=== PATIENT | female | born 1975 | race Asian ===

== ENCOUNTER 2020-05-19 10:10 | Emergency (ER) | payer BC, SELFPAY ==
--- NOTE | 2020-05-19 10:24 | ED.URI ---
HPI - URI/Sore Throat General Chief Complaint: Upper Respiratory Infection Stated Complaint: sore throat Time Seen by Provider: 05/19/20 10:24 Source: patient and RN notes reviewed History of Present Illness HPI Narrative: Patient is a 45-year-old female who presents the urgent care with complaints of a sore throat. Patient states that she has had a sore throat for 1 week and a slight dry cough without any fever, nausea, vomiting. Patient states that she had Keflex leftover from a previous prescription and has been taking it for the last 2 days. No other acute complaints. Denies any other use of [id number] medication. Patient states that her symptoms exacerbate when wearing the mask for too long. No acute distress noted. Patient read the plan of care. Related Data Home Medications Medication Instructions Recorded Confirmed cephalexin [Keflex] 500 mg PO Q12H 05/19/20 05/19/20 Allergies Allergy/AdvReac Type Severity Reaction Status Date / Time No Known Allergies Allergy Mild Verified 05/19/20 10:15 Review of Systems Review of Systems: Narrative: CONSTITUTIONAL: Denies fever, chills, or sweats. EYES: Denies visual changes, redness, or discharge. ENT: Reports of mild sore throat CARDIOVASCULAR: Denies chest pain, palpitations, or edema. RESPIRATORY: Reports a mild nonproductive cough without dyspnea GASTROINTESTINAL: Denies abdominal pain, nausea, vomiting, or diarrhea. GENITOURINARY: Denies dysuria or hematuria. SKIN: Denies rash or itching. MUSCULOSKELETAL: Denies back pain, joint pain, or myalgia. NEUROLOGIC: Denies headache, numbness, or weakness. All other systems reviewed are negative, except as documented in HPI. [facility] Social History Social History Gender identity (if verbalized by the patient): Female Comments At the time of my signature, I reviewed and agree with the nursing past medical, surgical, social, and family history. There is no relevant family history pertinent to the patient complaint. Exam Narrative: Exam Narrative: GENERAL: This is a well-nourished, well-developed patient, in no apparent distress. HEAD: normocephalic, atraumatic. EYES: PERRL. Sclera clear/white. Vision is grossly intact. EARS: External ears normal, auditory canals clear and without drainage, TMs normal without perforation. Hearing grossly intact. NOSE: External nose normal with no obvious nasal discharge, nares without redness, no rhinorrhea. THROAT: Mucous membranes moist, mild erythema noted to posterior oropharynx with moderate postnasal drainage without exudate or ulceration NECK: Neck supple CARDIOVASCULAR: Regular rate and rhythm without murmurs, gallops, or rubs. RESPIRATORY: Clear to auscultation. Breath sounds equal bilaterally. No wheezes, rales, or rhonchi. SKIN: warm, intact with no suspicious lesions or rash, good texture and turgor. NEURO: awake, alert, and oriented to person, place and time. There were no obvious focal neurologic abnormalities. EXTREMITIES: No clubbing, cyanosis, or edema. Course Vital Signs Vital signs: Vital Signs Temperature 98 F 05/19/20 10:27 Pulse Rate 62 05/19/20 10:27 Respiratory Rate 05/19/20 10:27 Blood Pressure 115/61 05/19/20 10:27 Pulse Oximetry 100 05/19/20 10:27 Temperature 98 F 05/19/20 10:27 Pulse Rate 62 05/19/20 10:27 Respiratory Rate 05/19/20 10:27 Blood Pressure 115/61 05/19/20 10:27 Pulse Oximetry 100 05/19/20 10:27 Reviewed MDM - URI/Sore Throat MDM Narrative Medical decision making narrative: Reviewed lab results with the patient. She is aware that strep swab was negative. Educated the patient on culture and we will call within 72 hours if culture is positive and antibiotics are necessary. Advised the patient to stop taking her leftover Keflex. Use [id number] allergy medication such as Claritin in conjunction with Flonase nasal spray for symptom relief. If you develop any increase in symptoms associate
[2020-05-19 10:27] VITALS: BP 115/61; PULSE 62; RESP 20; TEMP 36.6; O2SAT 100
== END 2020-05-19 10:36 | disposition home or self-care (01) ==
PROVIDERS: Emergency Provider Nurse Practitioner Family
DX: J02.9 Acute pharyngitis, unspecified (principal)
CPT/HCPCS: 87081; 87880; 99203; G0463

== ENCOUNTER 2023-05-22 06:11 | Day surgery (SDC) | payer OTHER, SELFPAY ==
[2023-05-10 10:49] VITALS: BMI 22.3
[2023-05-12 10:07] VITALS: BMI 19.6
--- NOTE | 2023-05-19 16:38 | PM.HPGS ---
History of Present Illness History of Present Illness Consent: Risks, benefits, and alternatives have been discussed and questions answered. Patient agrees to proceed with procedure. Chief complaint: Constipation Narrative: Pramod Galindo is a 48 year old female Referred for colonoscopy due to change in bowel habits. Review of Systems Review of Systems: All systems reviewed & are unremarkable except as noted in HPI and below PMFSH Social History Social History Smoking status: Never smoker Alcohol intake: never Substance use type: does not use Living arrangements: with family Gender identity (if verbalized by the patient): Female Spiritual care concerns: No Meds Home Medications and Allergies Home Medications Medication Instructions Recorded Confirmed Type ergocalciferol (vitamin D2) 1,250 1,250 mcg PO WEEKLY 05/12/23 05/22/23 History mcg (50,000 unit) capsule oxybutynin chloride 5 mg 5 mg PO DAILY 05/12/23 05/12/23 History tablet,extended release 24 hr Allergies Allergy/AdvReac Type Severity Reaction Status Date / Time No Known Allergies Allergy Mild Verified 05/22/23 06:30 Exam Const: General: alert Orientation/consciousness: patient oriented x3 Resp: Auscultation: clear to auscultation bilaterally Cardio: Rhythm: regular rhythm GI: GI Palp: Yes Soft to palpation and No Tenderness to palpation present (GI) Neuro: General: patient oriented x3 Assessment and Plan Assessment and plan (1) Change in bowel habits: Code(s): R19.4 - Change in bowel habit Status: Acute Assessment and Plan: Colonoscopy with possible biopsy or polypectomy or cautery or injection of substances.
[2023-05-22] VITALS (8 sets, daily range): BP systolic 80–122; BP diastolic 53–77; PULSE 53–71; RESP 14–18; TEMP 36.2; O2SAT 98–100; BMI 19.2
--- NOTE | 2023-05-22 06:45 | P.PNAN_ITS ---
Anes - Initial Pre Proc Eval Procedure: Operation Date: 05/22/23 07:30 Proposed Procedures p Diagnostic Colonoscopy - Berto Jones MD Date/Time: 05/22/23 06:45 Surgeon: Berto Jones MD Pre Op Diagnosis: Constipation Patient Data Age: 48 Gender: F Height: 1.63 m Weight: 50.9 kg Last Vital Signs Temp 36.2 C L 05/22/23 06:32 Pulse 56 L 05/22/23 06:32 Resp 16 05/22/23 06:32 BP 122/74 05/22/23 06:32 Pulse Ox 100 05/22/23 06:32 O2 Del Method Room Air 05/22/23 06:32 Allergies Allergy/AdvReac Type Severity Reaction Status Date / Time No Known Allergies Allergy Mild Verified 05/22/23 06:30 Home Medications Medication Instructions Recorded Confirmed Type ergocalciferol (vitamin D2) 1,250 1,250 mcg PO WEEKLY 05/12/23 05/22/23 History mcg (50,000 unit) capsule oxybutynin chloride 5 mg 5 mg PO DAILY 05/12/23 05/12/23 History tablet,extended release 24 hr Patient hx anesthesia problems: none Family hx anesthesia problems: none Results Review: All pre-operative results and documents have been reviewed as part of the pre- operative evaluation. [facility] Social History Social History Smoking status: Never smoker Alcohol intake: never Substance use type: does not use Living arrangements: with family Gender identity (if verbalized by the patient): Female Spiritual care concerns: No Anes - Eval Final PreProcedure Day of Procedure 05/22/23 06:45 Patient weight: normal Heart: regular rate and rhythm Lungs: clear to auscultation and normal air movement Airway: Mallampati scale class II Neurological: alert and oriented Last oral intake: >/= 8 hours ASA classification: II Emergent: no Anesthetic plan: proceed Anesthesia type and monitoring: general GIVS and standard monitoring Results Review: All pre-operative results and documents have been reviewed as part of the pre- operative evaluation. Informed Consent: The patient's anesthetic plan and its attendant risks and benefits were discussed with the patient/family/POA. Questions were solicited and answers provided to the satisfaction of the patient/family/POA.
[2023-05-22] MEDS: LACTATED RINGERS 1,000 ML 150 ML IV CONT (06:48)
--- NOTE | 2023-05-22 08:09 | SUR.PHASEII ---
Pt BP hypotensive in recovery, BP 80/53, 85/69, 86/62, fluids fully open, Pt states tired but otherwise asymptomatic, Dr. Ballesteros notifed, no new orders at this time. Will continue to monitor Pt.
--- NOTE | 2023-05-22 08:48 | SUR.PHASEII ---
Pt BP normalized in recovery, 107/75, 104/66, Pt states feels well and ready for D/C, Dr. Ballesteros updated and agrees with plan. VSS, Pt A&Ox4, wheeled out of department in no apparent distress. Pt states understands discharge instructions and will call physician with any concerns.
--- NOTE | 2023-05-22 12:03 | WPDANESPN ---
Anes - Prog Note Post-Op Date/Time: 05/22/23 12:03 Cardiovascular status: normal Respiratory status: normal Airway patency: baseline Mental status: baseline Post-Op hydration status: normal Vital Signs: Last Vital Signs Temp 36.2 C L 05/22/23 06:32 Pulse 60 05/22/23 08:39 Resp 18 05/22/23 08:39 BP 104/66 05/22/23 08:39 Pulse Ox 100 05/22/23 08:39 O2 Del Method Room Air 05/22/23 08:39 Pain Score (VAS): 0 I/O: Intake & Output 05/21/23 05/22/23 05/22/23 23:59 07:59 15:59 Intake Total 200 550 Balance 200 550 Post-procedural complaints: none Patient Feedback: Patient satisfied with anesthetic care. Other Findings: Patient vital signs back to baseline. Patient denies nausea and vomiting. Patient's pain under control. Patient OK for discharge.
== END 2023-05-22 08:51 | disposition home or self-care (01) ==
PROVIDERS: PCP Emergency Medicine; Visit Provider Internal Medicine Gastroenterology
PROC: 0DJD8ZZ Inspection of Lower Intestinal Tract, Via Natural or Artificial Opening Endoscopic (ICD-10-PCS; CPT 45378; principal; 2023-05-22 07:30)
DX: R19.4 Change in bowel habit (principal)
CPT/HCPCS: 45378